=== PATIENT | male | born 1985 | race Caucasian/White ===

== ENCOUNTER 2021-03-06 16:56 | Emergency (ER) | payer OTHER, SELFPAY ==
[2021-03-06 17:43] VITALS: BP 127/92; PULSE 106; RESP 16; TEMP 37.2; O2SAT 97; BMI 29.0
[2021-03-06] MEDS: Lidocaine 4 % Cream KIT 1 APPL TOPICAL (18:53)
[2021-03-06] MEDS: Lidocaine HCl 1 % MPF 5 ML VIAL SUBCUT (18:53)
--- NOTE | 2021-03-06 19:44 | ED_ITS ---
HPI - Skin/Abscess/Foreign Bdy General Chief complaint: Skin/Abscess/Foreign Body Stated complaint: Cyst on leg Time Seen by Provider: 03/06/21 18:02 Source: patient and family Mode of arrival: ambulatory History of Present Illness HPI narrative: 35-year-old With a past medical history of anxiety, panic attacks, presenting to the ED complaining of red inflamed area noted to right mckoy with pus drainage x2 days. Reports was started on Keflex outpatient 2 days ago without relief. Denies fever, chills complaint: abscess/boil Related Data Previous Rx's Medication Instructions Recorded sulfamethoxazole-trimethoprim 1 tab PO Q12H 7 Days #14 tab 03/06/21 [Bactrim DS] Allergies Allergy/AdvReac Type Severity Reaction Status Date / Time No Known Allergies Allergy Verified 03/06/21 19:48 [No Known Allergies*] Review of Systems Review of Systems: Constitutional: No Fever, No Chills Musculoskeletal: No joint pain, No Myalgias, No Joint Swelling Skin: +abscess, No rash Neuro: No Weakness, No Numbness, No Paresthesias Yes all other systems are reviewed and are negative REPLACED BY [facility] Past Medical History Attestation statement: The following information was validated with the patient. Medical History (Updated 03/06/21 @ 19:46 by ALESHA Adams) Anxiety Panic attack Social History Social History Alcohol intake: never Smoking Status: Never smoker Use of substances other than those prescribed or required for medical reasons: No Advance Directives: No Advance Directives Information Provided: No Physical Exam Vital Signs: Vital Signs: Last Vital Signs Temp 98.9 F 03/06/21 17:43 Pulse 106 H 03/06/21 17:43 Resp 16 03/06/21 17:43 BP 127/92 H 03/06/21 17:43 Pulse Ox 97 03/06/21 17:43 Body Mass Index 29.0 Const: General: cooperative and healthy appearing Orientation/consciousness: patient oriented x3 Limitations: no limitations HENMT: Head: Yes normal to inspection Ears: hearing grossly normal bilaterally General nose exam: Normal external nose present Face and sinus: Yes normal facial exam Eyes: General: appearance normal, both eyes and all related structures EOM: EOMs intact bilaterally Neck: Neck: Yes normal visual inspection Resp: Effort & Inspection: normal respiratory effort Cardio: Rate: regular rate Peripheral pulses: dorsalis pedis present Skin: Other: + indurated abscess noted to proximal right mckoy with central fluctuance and surrounding cellulitis. No streaking. Warm to touch Rashes: no rashes Wounds: no wounds Neuro: General: patient oriented x3 Gait exam (Neuro): Normal gait present Extrem: General: Yes normal to inspection Procedures Abscess I/D Site: lower extremity Side (if applicable): right Local Anesthetic: lidocaine 1% Amount of anesthesia used (mL): 3 Technique: incised with blade Packing used?: none Complications: pain MDM - Skin/Abscess/Foreign Bdy MDM Narrative Medical decision making narrative: On exam mildly tachycardic, anxious, low concern for severe sepsis, tachycardia likely from anxiety/fever, will I & D abscess and add Bactrim to antibiotics Abscess/cellulitis marked, worrisome signs and symptoms and strict return precautions discussed. Patient given 1st dose of Bactrim in the ED Differential Diagnosis Differential diagnosis: Likely abscess of skin or subcutaneous tissue and cellulitis Discharge Plan Discharge Clinical Impression: Cellulitis, Abscess Patient Disposition: Home, Self-Care Instructions: Cellulitis (ED), Abscess (ED) Additional Instructions: You had an abscess that was drained today in the emergency department with overlying cellulitis Continue taking previously prescribed antibiotic, in addition start taking Bactrim Your cellulitis was marked, if the redness is spreading past the line return to the ED immediately You should be re-evaluated in 2 days by her primary care doctor He develops fever chills return to the ED sooner Tuvo un absceso que fue drenado hoy en el departamento de emergencias con celulitis suprayacente Contin?e tomando el antibi?peggy prescrito previamente, adem?s comience a suzie Bactrim Avila celulitis fue marcada, si el enrojecimiento se est? extendiendo m?s all? de la l?juan, regrese al servicio de urgencias de inmediato Debe ser reevaluado en 2 d?as por avila m?dico de atenci?n primaria. Desarrolla escalofr?os y regresa al servicio de urgencias antes Prescriptions: New sulfamethoxazole-trimethoprim [Bactrim DS] 800-160 mg tablet 1 tab PO Q12H 7 Days Qty: 14 RF: 0 Referrals: Physician,None [Primary Care Provider] - 2 days Print Language: Upper Sorbian
== END 2021-03-06 20:28 | disposition home or self-care (01) ==
PROVIDERS: Emergency Provider Emergency Medicine
DX: L02.415 Cutaneous abscess of right lower limb (principal); L03.115 Cellulitis of right lower limb
CPT/HCPCS: 10060; 99283; 99284